=== PATIENT | female | born 2000 | race Two or more races ===

== ENCOUNTER → 2020-06-11 08:00 | Outpatient (CLI) | payer OTHER ==
[~2020-06-11] VITALS: Ht 160 cm; Wt 57.6 kg
[~2020-06-11 08:00] MED LIST: TAPAZOLE PO; TENORMIN25 MG PO
== END | disposition home or self-care (01) ==
LOC: LAB 08:00 → EDSTATUS 06-13 08:30 → SURH 06-13 08:30
PROVIDERS: ATTEND Surgery
DX: E05.00 Thyrotoxicosis with diffuse goiter without thyrotoxic crisis or storm (principal); Z03.818 Encounter for observation for suspected exposure to other biological agents ruled out; Z20.822 Contact with and (suspected) exposure to COVID-19